=== PATIENT | female | born 1955 | race Caucasian/White ===

== ENCOUNTER 2020-05-16 15:02 | Emergency (ER) | payer BC ==
[~2020-05-16] VITALS: Ht 165.1 cm; Wt 68.0 kg
[2020-05-16] MEDS ORDERED: guaiFENesin /DM 10ml syrup ORAL STA (15:16)
[2020-05-16] MEDS ORDERED: Acetaminophen 500mg (ES) tab ORAL ONE (15:30)
--- NOTE | 2020-05-16 15:33 | Emergency Room Report ---
History of Present Illness General Chief Complaint: To Be Triaged Source: Patient, PMD Present Illness HPI The patient was sent by her private doctor. She tested +9 days ago for Covid. She has been having increasing GI symptoms and also increased weakness. She is here for consideration of administration of BAM. The patient has cough that is nonproductive but feels gurgling at night. She said she had a fever at the doctor's office and has not taken any medication for this. She was apparently on a Regeneron trial but her doctor states that she received placebo. Another physician prescribed albuterol which she has not filled or used yet. She denies wheezing. She has generalized malaise, fatigue and body pain. She rates the pain 1/10 at this time. The patient has felt feverish. The patient states that all of her family is testing positive for COVID-19. The patient denies comorbidities for severe COVID-19 disease however she has worsening symptoms. No sore throat, chest pain, palpitations, nausea, vomiting, dysuria, abdominal pain, rashes, depression, anxiety, visual changes, dizziness. Allergies: Coded Allergies: SULFAMETHOXAZOLE (Verified Allergy, Unknown, 05/16/20) TRIMETHOPRIM (Verified Allergy, Unknown, 05/16/20) Patient History Past Medical History: see triage record Social History: Denies: smoking, drug use Social History Narrative with 2 daughters Reviewed Nursing Documentation: PMH: Agreed; PSxH: Agreed Review of Systems All Other Systems: negative except mentioned in HPI Physical Exam Vital Signs Date Time Temp Pulse Resp B/P (MAP) Pulse Ox O2 Delivery O2 Flow Rate FiO2 05/16/20 15:29 98.2 110 16 134/87 (103) 99 Room Air 05/16/20 16:25 99 Sp02 EP Interpretation: reviewed, normal General Appearance: well appearing, no apparent distress, GCS 15 Head: normocephalic Eyes: bilateral eye normal inspection, bilateral eye PERRL, bilateral eye EOMI ENT: other - Wearing a mask Neck: full range of motion, supple Respiratory: lungs clear, normal breath sounds, other - Occasional spells of coughing Cardiovascular #1: regular rate, rhythm Cardiovascular #2: 2+ radial (R) Gastrointestinal: normal inspection, non-distended Genitourinary: no CVA tenderness Musculoskeletal: back normal, normal range of motion, no calf tenderness, gait/station normal Neurologic: alert, oriented x3, grossly normal Psychiatric: mood/affect normal Skin: no rash, warm/dry, other - Fully dressed Medical Decision Making Diagnostic Impression: Primary Impression: COVID-19 Additional Impression: Pneumonia due to COVID-19 virus ER Course Patient presents with consideration of monoclonal antibody infusion. She is known to have COVID-19 disease and has worsening symptoms. Patient will be evaluated with chest x-ray, troponin, D-dimer. Pharmacy will be notified that she is most likely a candidate for BAM. Chest x-ray with bilateral atelectasis and possible early infiltrates. Troponin and D-dimer are negative. This patient was evaluated in the context of the global COVID-19 pandemic, which necessitated consideration that the patient might be at risk for infection with the [id number] virus that causes COVID-19. Institutional protocols and algorithms that pertain to the evaluation of patients at risk for COVID-19 and the state of rapid change based on information released by multiple regulatory bodies including the CDC and federal and state organizations. These policies and algorithms were followed during the patient's care in the ED. BAM infused and tolerated well. Discussed treatment plan with patient and expected course. Discussed the need for outpatient follow-up with her own physician. Patient stable for outpatient observation and treatment. Chest X-Ray Diagnostic Results Chest X-Ray Diagnostic Results : Chest X-Ray Ordered: Yes # of Views/Limited/Complete: 1 View Indication: Other EP Interpretation: Yes Interpretation: no effusion, no pneumothorax, other - Bilateral patchy lower lobe infiltrates with atelectasis Impression: Other Electronically Signed by: Electronically signed by Hugo Cancino MD Last Vital Signs Date Time Temp Pulse Resp B/P (MAP) Pulse Ox O2 Delivery O2 Flow Rate FiO2 05/16/20 19:46 98.3 99 20 128/78 98 Room Air 99 Status: improved Disposition: HOME, SELF-CARE Condition: Improved Scripts Guaifenesin/Codeine Phos* (ROBITUSSIN AC*) 118 Ml Liquid 5 ML ORAL Q6H PRN for For Cough, #90 ML 0 Refills Prov: Hugo Cancino MD 05/16/20 uHgo Cancino MD May 16, 2020 15:33
[2020-05-16] MEDS ORDERED: Bamlanivimab 700 MG in NS 275 ML IVPB SCH (16:00)
[2020-05-16] MEDS ORDERED: Bamlanivimab Fact Sheet MISC ONE (16:00)
--- NOTE | 2020-05-16 16:20 | NUR ---
ED Nurse Note: Pt walked into ED for monoculeal antiobodies. She was tested COVID + on 04/30. She has bodyaches, chills, fever. She denies nausea/vomiting. SHe has been seen by ALONDRA.
[2020-05-16 16:25] VITALS: BP 130/82
--- NOTE | 2020-05-16 16:52 | Diagnostic Imaging Report ---
Indication: Cough Technique: One view of the chest Comparison: none Findings: There are bilateral basilar streaky infiltrates. Heart size is normal. Pleural spaces are grossly clear. Upper lungs are clear. Impression: Bilateral basilar streaky infiltrates, worrisome for bilateral pneumonia, possibly viral.
[2020-05-16 19:12] VITALS: BP 129/83
[2020-05-16] MEDS ORDERED: GUAIFENESIN-CO118 M1 ORAL (19:14)
[2020-05-16 19:46] VITALS: BP 128/78
--- NOTE | 2020-05-16 19:46 | NUR ---
ER DISCHARGE NOTE: Patient is cleared to be discharged per ERMD, pt is aox4, on room air, with stable vital signs. pt was given dc and prescription instructions, pt was able to verbalize understanding, pt id band and iv site removed without complications. pt is able to ambulate with steady gait. pt took all belongings.
== END 2020-05-16 19:47 | disposition home or self-care (01) ==
LOC: EMR 15:57
DX: U07.1 COVID-19 (principal); J12.82 Pneumonia due to coronavirus disease 2019; Z88.2 Allergy status to sulfonamides; Z88.8 Allergy status to other drugs, medicaments and biological substances
CPT/HCPCS: 36415; 71045; 84484; 85379; 96365; 99284; J7050; Q0239